=== PATIENT | female | born 1995 | race Caucasian/White ===

== ENCOUNTER → 2018-02-26 | Day surgery (SDC) | payer BC, OTHER ==
[~2018-02-26] VITALS: Ht 162.6 cm; Wt 77.1 kg
[2018-02-26] VITALS (9 sets, daily range): BP systolic 108–136; BP diastolic 64–77
[~2018-02-26] MED LIST: Acetaminophen (Non formulary) 100 ML IV ONE; Bacitracin 50000 Units Vial ONE; Bacitracin Oint 15gm Tube TOPIC ONE; Bupivacaine 0.5% Inj 30 ml vial INJ ONE; D5 1/2NS 1,000 ML IV SCH; Dexamethasone 4mg/ml vial ONE; DiphenhydrAMINE 50mg/ml Inj IVP PRN; Dyna-Hex 2% Top Sol 2oz TOPIC ONE; Glycopyrrolate 0.2mg/ml 1ml Vial ONE; HYDROmorphone 1mg/ml Carpuject SUBQ PRN; Ketorolac 30mg Inj IV PRN; LR 1000ml 1,000 ML IVLG SCH; LR 1000ml ONE; Lidocaine 1% 10mg/ml/EPI 0.01mg/ml 50ml INJ ONE; Lidocaine 1% MPF 10mg/ml 5ml ONE; Meperidine 50mg/ml Inj(FOR RIGORS ONLY) IV PRN; Metoclopramide 10mg/2ml Inj IVP PRN; Midazolam 2mg/2ml Inj IVP PRN; Midazolam 2mg/2ml Inj ONE; Morphine Sulfate 10mg/ml Inj ONE; Muri-Lube ONE; NKM; NS Irrig 1000ml ONE; Norco 5mg/325mg tab ORAL PRN; Propofol 200mg/20ml IV ONE; Sodium Chloride 10ml vial INJ ONE; Sterile Water Irrig 1000ml IRRIG ONE; Succinylcholine 20mg/ml 10ml vial ONE; Tylenol #3 tab (300mg/30mg) ORAL PRN; Zemuron 50mg/5ml Inj IV ONE; ceFAZolin 2gm/50ml Premix 50 ML IVPB ONE; ceFAZolin sod 2 GM in NS 55 ML IVPB ONE; fentaNYL 100 mcg/2 mL IV ONE; fentaNYL 100 mcg/2 mL IV PRN
--- NOTE | 2018-02-26 12:11 | Anethesia Preoperative Eval ---
Anesthesia Pre-op PMH/ROS General Date of Evaluation: Feb 26, 2018 Time of Evaluation: 10:50 Anesthesiologist: Jacquelin ASA Score: ASA 2 Mallampati Score Class I : Soft palate, uvula, fauces, pillars visible Class II: Soft palate, uvula, fauces visible Class III: Soft palate, base of uvula visible Class IV: Only hard plate visible Mallampati Classification: Class II Surgeon: Magda Diagnosis: Gender dysphoria Surgical Procedure: Bilateral mastectomy Anesthesia History: none Allergies: Coded Allergies: No Known Allergies (Unverified , 02/25/18) Medications: see eMAR Patient NPO?: Yes Past Medical History Cardiovascular: Denies: HTN, CAD, SD, valve dz, arrhythmia, other Pulmonary: Denies: asthma, COPD, SITA, other Gastrointestinal/Genitourinary: Reports: GERD - mild; Denies: CRI, ESRD, other Neurologic/Psychiatric: Reports: depression/anxiety; Denies: dementia, CVA, TIA, other Endocrine: Denies: DM, hypothyroidism, steroids, other HEENT: Denies: cataract (L), cataract (R), glaucoma, [place] (L), [place] (R), other Hematology/Immune: Denies: anemia, DVT, bleeding disorder, other Musculoskeletal/Integumentary: Denies: OA, RA, DJD, DDD, edema, other PMH Narrative: as above PSxH Narrative: T&A Anesthesia Pre-op Phys. Exam Physician Exam Last Vital Signs Date Time Temp Pulse Resp B/P (MAP) Pulse Ox O2 Delivery O2 Flow Rate FiO2 02/26/18 10:15 98.2 59 20 112/73 99 Room Air Constitutional: NAD Neurologic: CN 2-12 intact Cardiovascular: RRR, no M/R/G Respiratory: CTA Gastrointestinal: S/NT/ND Airway Exam Mallampati Score: Class II MO: full Neck: flexible ROM: full Teeth: intact Dentures: no upper, no lower Anesthesia Pre-op A/P Labs see chart Urine Test Test 02/26/18 09:25 Urine HCG, Qualitative Negative (NEGATIVE) Studies Pre-op Studies: EKG - NSR Risk Assessment & Plan Assessment: ASA 2 Plan: GA with ETT PONV Prevention Status Change Before Surgery: No Pre-Antibiotics Drug: Ancef 2gr Given Within 1 Hr of Incision: Yes Time Given: 11:48 Sukhdeep Roper MD Feb 26, 2018 12:11
--- NOTE | 2018-02-26 14:11 | Operative Note - PDOC ---
Operative Note Operative Note Date of Operation/Procedure: Feb 26, 2018 Pre-op Diagnosis: gender identity disorder Procedure: bilateral mastectomy, bilateral nipple areola reconstruction Post-op Diagnosis: same as pre-op Surgeon: Magda Furniture Stainer: Jalil Anesthesiologist: Jacquelin Anesthesia: general Specimen: yes - 1) right breast, 2) left breast Complications: none Condition: stable Estimated Blood Loss: volume - 50 cc Drains: DEYSI - x2 Implant(s) used?: No Bola Man MD Feb 26, 2018 14:11
--- NOTE | 2018-02-26 14:11 | Discharge Instructions ---
Discharge Instructions Discharge Instructions Follow up with: Dr. Man 03/02/18 Diet: regular Resume Normal Activity?: Yes Activity: ambulate For Surgical Patients Dressing Care: keep dry and clean May shower: No - sponge bathe only For Congestive Heart Failure Reminder Report to your physician any weight gain of 5 pounds or more in one week. Bola Man MD Feb 26, 2018 14:11
--- NOTE | 2018-02-26 14:12 | Pre-Procedure Note/Attestation ---
Pre-Procedure Note/Attestation Complete Prior to Procedure Planned Procedure: bilateral Indications for Procedure Pre-Operative Diagnosis: gender identity disorder Attestation I attest that I discussed the nature of the procedure; its benefits; risks and complications; and alternatives (and the risks and benefits of such alternatives ), prior to the procedure, with the patient (or the patient's legal home furnishings sales representative). I attest that, if there was a reasonable possibility of needing a blood transfusion, the patient (or the patient's legal home furnishings sales representative) was given the [facility] standardized written summary, pursuant to the [place] Blood Safety Act ([place] Health and Safety Code # 1645, as amended). I attest that I re-evaluated the patient just prior to the surgery and that there has been no change in the patient's H&P, except as documented below: Bola Man MD Feb 26, 2018 14:12
--- NOTE | 2018-02-26 14:28 | Immediate Post-Op Evaluation ---
Immediate Post-Op Evalulation Immediate Post-Op Evalulation Procedure: Bilateral mastectomy with nipple reconstruction Date of Evaluation: Feb 26, 2018 Time of Evaluation: 14:27 IV Fluids: 1400 Blood Products: none Estimated Blood Loss: 50 Urinary Output: 1000 Blood Pressure Systolic: 108 Blood Pressure Diastolic: 68 Pulse Rate: 72 Respiratory Rate: 20 O2 Sat by Pulse Oximetry: 99 Temperature (Fahrenheit): 97.5 Pain Score (1-10): 2 Nausea: No Vomiting: No Complications none Patient Status: reacts, patent, extubated, none Hydration Status: adequate Sukhdeep Roper MD Feb 26, 2018 14:28
--- NOTE | 2018-02-26 14:56 | 48 Hour Post Anesthesia Eval ---
Post Anesthesia Evaluation Procedure: Bilateral mastectomy with nipple reconstruction Date of Evaluation: Feb 26, 2018 Time of Evaluation: 14:54 Blood Pressure Systolic: 117 0: 65 Pulse Rate: 77 Respiratory Rate: 20 Temperature (Fahrenheit): 97.5 O2 Sat by Pulse Oximetry: 99 Airway: patent Nausea: No Vomiting: No Pain Intensity: 2 Hydration Status: adequate Cardiopulmonary Status: stable Mental Status/LOC: patient returned to baseline Follow-up Care/Observations: n/a Post-Anesthesia Complications: none Follow-up care needed: ready to discharge Sukhdeep Roper MD Feb 26, 2018 14:56
--- NOTE | 2018-02-26 22:30 | Operative Note - Dictated ---
DATE OF OPERATION: 02/26/2018 PREOPERATIVE DIAGNOSIS: Gender identity disorder. POSTOPERATIVE DIAGNOSIS: Gender identity disorder. PROCEDURES: 1. Bilateral mastectomy. 2. Bilateral nipple areola reconstruction utilizing full-thickness nipple areola grafts (each graft 2.5 x 2.5 cm). SURGEON: Bola Man M.D. CALENDER SUPERVISOR: Surinder Jimenes M.D. ANESTHESIA: General. ESTIMATED BLOOD LOSS: 50 mL. SPECIMENS: 1. Right breast. 2. Left breast. DRAINS: 15-Italian Abner x2. COMPLICATIONS: None. CONDITION: To recovery room stable. INDICATION FOR PROCEDURE: This is a very pleasant 22-year-old trans male who desires top surgery mastectomy as part of his transition. He has the appropriate letter of recommendation from his therapist and meets all WPATH criteria for top surgery. I have discussed the risks, benefits, and alternatives to the procedure with him including, but not limited to bleeding, infection, scarring, nerve injury, asymmetry, contour deformity, hematoma, seroma, loss of nipple sensation, loss of nipple graft, and need for additional surgery including revisions. I discussed the orientation of the incisions and the unpredictable nature of scarring. No guarantees were made regarding the outcome. All of his questions have been answered to the best of my ability. He verbalized understanding with everything that we discussed and wishes to proceed. DESCRIPTION OF PROCEDURE: The patient was identified in the preoperative holding area and marked in the standing position. He was then brought to the operating room where he was placed in the supine position on the operating room table with his arms extended on arm boards. All bony prominences were adequately padded. Sequential compression devices were placed and intravenous antibiotics were administered. After induction of anesthesia, the patient's chest was prepped and draped in sterile fashion. Starting on the left breast first, the nipple areola complex was placed on manual stretch and a [place] coos measuring 2.5 cm in diameter was drawn out centered around the nipple. Next, the subdermal plane was infiltrated with 4 mL of 1% lidocaine with epinephrine. The markings were then incised using a 15 blade scalpel. A full-thickness nipple areola graft was harvested. The graft was subsequently defatted, wrapped in wet gauze, and placed on the back table. I then made the inframammary fold incision using a 10 blade scalpel. Dissection proceeded down to the level of the pectoralis major fascia. After this was done, the superior breast incision was made and dissection proceeded down to the level of Brayan fascia. Skin hooks were used to retract the skin and a plane of dissection was created between the subcutaneous tissue and breast parenchyma heading in a superior direction towards the level of the clavicle. Afterwards, the breast parenchyma was elevated off of the pectoralis major fascia proceeding from a medial to lateral direction. The specimen was passed off the table. The wound was irrigated and hemostasis was achieved. Next, a 15-Italian Abner drain was placed within the wound and brought out through a separate stab incision and secured using 2-0 silk suture. The skin was then temporarily reapproximated with skin sofía. I shifted my attention to the contralateral side where the identical procedure was performed. Next, the patient was sat up on the operating room table and it appeared that he had very reasonable symmetry between the two sides of the chest. The proposed location of the new nipple areola complex was drawn out on each side and was confirmed using direct measurements. He was then placed back in the supine position and the skin sofía were removed. On each side of the chest, the wound was closed with 0 Vicryl suture for the Brayan fascia layer, 3-0 PDS suture for the subdermal layer, and a running 3-0 Monocryl subcuticular suture for the skin. Next, the marking corresponding to the new location of the nipple areola graft was incised and the intervening skin was de-epithelialized. Each of the full-thickness nipple areola grafts were brought out onto the appropriate side of the chest and inset using a running 5-0 fast absorbing suture. Next, several 2-0 silk suture ties were placed around the periphery of each graft. A skin graft bolster was fashioned and secured into place using the 2-0 silk suture ties. Next, 10 mL of 0.5% plain Marcaine was injected into each incision. Sterile dressings were then applied. The patient tolerated the procedure well and was sent to the recovery room in stable condition. All instrument, sharp, and sponge counts were correct at the conclusion of the case. Bola Man M.D. DR: GERALDINE JOB#: [id number] CC: RACHAEL
== END | disposition home or self-care (01) ==
LOC: SUR 09:13
DX: F64.9 Gender identity disorder, unspecified (principal); E03.9 Hypothyroidism, unspecified; K21.9 Gastro-esophageal reflux disease without esophagitis; F32.9 Major depressive disorder, single episode, unspecified; F41.9 Anxiety disorder, unspecified; Z87.891 Personal history of nicotine dependence
CPT/HCPCS: 15200; 19303; 81025; J0330; J0690; J1100; J1885; J2250; J2270; J2405; J2704; J3010; J3490; 94003; 94150